=== PATIENT | male | born 1930 | race Hispanic/Latino ===

== ENCOUNTER 2017-01-10 12:22 | Inpatient (IN) | payer MEDICARE ==
--- NOTE | 2017-01-10 13:24 | C.PDOC ---
History Of Present Illness 86 y/o male presents to ED sent by Dr. Strickland for admission under hospitalist for Anemia. As per Dr. Strickland patient had a Hemoglobin of 5.2 and has been evaluated for bleeding with negative stool test. Physician wants patient admitted for Iron studies and x4 units of prbcs. In ED patient complaints of fatigue and denies syncope, nausea, vomiting, headache or any other complaints at this time. Time Seen by Provider: 01/10/17 13:04 Chief Complaint (Nursing): Abnormal Labs History Per: Patient History/Exam Limitations: no limitations Onset/Duration Of Symptoms: Days Current Symptoms Are (Timing): Still Present Past Medical History Reviewed: Historical Data, Nursing Documentation, Vital Signs Vital Signs: Last Vital Signs Temp 97.3 F L 01/10/17 12:42 Pulse 73 01/10/17 12:42 Resp 16 01/10/17 12:42 BP 116/65 01/10/17 12:42 Pulse Ox 98 01/10/17 13:47 - Medical History PMH: No Chronic Diseases Surgical History: No Surg Hx Family History: States: No Known Family Hx - Social History Hx Alcohol Use: No Hx Substance Use: No - Immunization History Hx Tetanus Toxoid Vaccination: No Hx Influenza Vaccination: No Hx Pneumococcal Vaccination: No Review Of Systems Except As Marked, All Systems Reviewed And Found Negative. Constitutional: Negative for: Fever, Chills Cardiovascular: Negative for: Chest Pain Respiratory: Negative for: Cough, Shortness of Breath Gastrointestinal: Negative for: Nausea, Vomiting Genitourinary: Negative for: Dysuria, Frequency, Hematuria Skin: Negative for: Rash Neurological: Negative for: Weakness, Numbness Physical Exam - Physical Exam Appears: Non-toxic, No Acute Distress Skin: Warm, Dry, Pale Head: Atraumatic, Normacephalic Eye(s): bilateral: Normal Inspection, PERRL, EOMI Oral Mucosa: Moist Throat: Normal, No Erythema, No Exudate Neck: Normal ROM, Supple Cardiovascular: Rhythm Regular Respiratory: Normal Breath Sounds, No Rales, No Rhonchi, No Wheezing Extremity: Normal ROM, Capillary Refill (<2 seconds) Neurological/Psych: Oriented x3, Normal Motor, Normal Sensation ED Course And Treatment - Laboratory Results Result Diagrams: 01/10/17 13:32 01/10/17 13:21 O2 Sat by Pulse Oximetry: 98 (RA) Pulse Ox Interpretation: Normal Medical Decision Making Medical Decision Making: EKG shows NSR at 92bpm with RBBB. Labs significant for anemia and low platelets. Transfusion ordered per atomic spectroscopist. Spoke to Dr. Malachi Caceres who will admit patient/ Disposition - Disposition Disposition: HOSPITALIZED Disposition Time: 14:13 Condition: FAIR - Clinical Impression Clinical Impression: Anemia, Thrombocytopenia - Scribe Statement The provider has reviewed the documentation as recorded by the Inocencio Collins All medical record entries made by the Inocencio were at my direction and personally dictated by me. I have reviewed the chart and agree that the record accurately reflects my personal performance of the history, physical exam, medical decision making, and the department course for this patient. I have also personally directed, reviewed, and agree with the discharge instructions and disposition.
[2017-01-10 13:37] LABS: CHLORIDE 102 mmol/L (98-107); POTASSIUM 3.6 mmol/L (3.6-5.2); SODIUM 136 mmol/L (132-148)
[2017-01-10 13:39] LABS: GFR AFRICAN-AMERICAN 54; IRON 66 ug/dL (49-181)
[2017-01-10 13:40] LABS: ALB/GLOB RATIO 0.8 (1.0-2.1); ALKALINE PHOSPHATASE 51 U/L (38-126); ALT/SGPT 30 U/L (21-72); AST/SGOT 17 U/L (17-59); BILIRUBIN,TOTAL 1.2 mg/dL (0.2-1.3); BLOOD UREA NITROGEN 38 mg/dL (9-20); CALCIUM 8.1 mg/dl (8.6-10.4); CARBON DIOXIDE 21 mmol/L (22-30); GLUCOSE,RANDOM 104 mg/dL (75-110); TOTAL PROTEIN 8.2 g/dL (6.3-8.3)
[2017-01-10 13:41] LABS: INR 1.4
[2017-01-10 13:41] LABS: MEAN PLATELET VOLUME 11.2 fL (7.2-11.7)
[2017-01-10 13:48] LABS: MEAN CELL VOLUME 71.7 fL (80.0-94.0); MEAN CORPUSCULAR HEMOGLOBIN 21.6 pg (27.0-31.0); MEAN CORPUSCULAR HGB CONC 30.1 g/dL (33.0-37.0); RED CELL DISTRIBUTION WIDTH 42.7 % (11.5-14.5); WHITE BLOOD COUNT 7.5 K/uL (4.8-10.8)
[2017-01-10 13:52] LABS: PLATELET COUNT 27 K/uL (130-400)
[2017-01-10 14:25] LABS: BILIRUBIN,DIRECT 0.8 mg/dL (0.0-0.4)
[2017-01-10 14:27] LABS: BASO % 0.4 % (0.0-2.0); EOS # 0.1 K/uL (0.0-0.7); EOS % 0.7 % (0.0-4.0); LYMPH # 2.7 K/uL (1.0-4.3); MONO # 3.4 K/uL (0.0-0.8); MONO % 46.2 % (0.0-10.0); NRBC % 1.6 % (0.0-2.0)
[2017-01-10 14:29] LABS: NEUTROPHIL 16 % (50-75); NUCLEATED RED BLOOD CELL 1 % (0-0); TOTAL CELLS COUNTED 100
[2017-01-10 14:31] LABS: ACANTHOCYTES SLIGHT
[2017-01-10 14:32] LABS: HOMOCYSTEINE 34.7 umol/L (6.6-14.8)
[2017-01-10 14:32] LABS: LARGE PLATELETS PRESENT
[2017-01-10 14:44] LABS: FOLATE 15.8 ng/mL
--- NOTE | 2017-01-10 16:20 | RAD ---
HISTORY: anemia COMPARISON: No prior. FINDINGS: LUNGS: No acute infiltrate bilaterally. PLEURA: Trace right pleural effusion not excluded. No significant right pleural effusion identified, no pneumothorax apparent. CARDIOVASCULAR: Borderline cardiomegaly. No pulmonary vascular derangement identified. OSSEOUS STRUCTURES: No significant abnormalities. VISUALIZED UPPER ABDOMEN: Normal. OTHER FINDINGS: None. IMPRESSION: Borderline cardiomegaly. No acute infiltrate bilaterally. Trace of pleural effusion not excluded.
--- NOTE | 2017-01-10 16:25 | CP.PCM.HP ---
History of Present Illness - History of Present Illness History of Present Illness: Medicine H/P for Dr. Caceres CC: Sent by PMD for low Hgb HPI: Patient come to the ED after being set here from Dr. Daugherty's office. He has been feeling tired for two days associated with being "unable to catch his breath". He went to his PMDs office Dr. Aranda that sent him to a cardiologists office where he received an EKG and Echo. He was then sent to Dr. Daugherty's office where he was found to have a very low Hgb and was instructed to be sent to the ED and receive blood. When i saw the patient he was already getting his first unit of blood. Denies any sick contacts or recent travel ROS: * Const: denied Fever, chills or WL * HEENT: complained of minor MCCABE, denies any changes in hearing vision, dizziness * Heart: denied any chest pain, complained of some SOB, denied any palpitations * Lungs: complained of some SOB, Denied any cough * GI: has had a colonoscopy every 10 years since the age of 50, Denies abdominal pain, nausea, vomiting, diarrhea, constipation, hematemesis, hematochezia, melena or BRNPR * : Denies dysuria, frequency or hematuria * Ext: denies any leg pain or swelling * Skin: Denies any rashes * Heme: denies any easy brusing * Onc: Denies any history of cancer PMH: Anxiety PSH: none FH: noncontributory 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, 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; 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, 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, 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 Meds: Ativan 0.5mg PO TID PRN for anxiety Allergies: None FULL CODE PMD: Rosi Present on Admission - Present on Admission Any Indicators Present on Admission: No Review of Systems - Review of Systems All systems: reviewed and no additional remarkable complaints except (per hpi) Past Patient History - Past Social History Smoking Status: Never Smoked - PSYCHIATRIC Hx Substance Use: No Meds Allergies/Adverse Reactions: Allergies Allergy/AdvReac Type Severity Reaction Status Date / Time No Known Allergies Allergy Verified 01/10/17 12:45 Physical Exam - Constitutional Appears: Well, Non-toxic, No Acute Distress - Head Exam Head Exam: ATRAUMATIC, NORMAL INSPECTION, NORMOCEPHALIC - Eye Exam Eye Exam: EOMI Pupil Exam: NORMAL ACCOMODATION - ENT Exam ENT Exam: Mucous Membranes Moist - Respiratory Exam Respiratory Exam: Clear to Auscultation Bilateral, NORMAL BREATHING PATTERN - Cardiovascular Exam Cardiovascular Exam: REGULAR RHYTHM - GI/Abdominal Exam GI & Abdominal Exam: Normal Bowel Sounds, Soft. absent: Distended, Tenderness - Rectal Exam Additional comments: FOBT done in ER was negative - Extremities Exam Extremities exam: Negative for: joint swelling, tenderness - Back Exam Back exam: absent: CVA tenderness (L), CVA tenderness (R) - Neurological Exam Neurological exam: Alert, CN II-XII Intact, Oriented x3 - Psychiatric Exam Psychiatric exam: Normal Affect, Normal Mood - Skin Skin Exam: Dry, Intact, Normal Color, Warm Results - Vital Signs Recent Vital Signs: Last Vital Signs Temp 98 F 01/10/17 15:31 Pulse 86 01/10/17 15:31 Resp 16 01/10/17 15:31 BP 128/57 L 01/10/17 15:31 Pulse Ox 98 01/10/17 15:31 - Labs Result Diagrams: 01/10/17 13:32 01/10/17 13:21 Labs: Laboratory Results - last 24 hr 01/10/17 01/10/17 01/10/17 13:21 13:21 13:21 WBC RBC Hgb Hct MCV MCH MCHC RDW Plt Count MPV Neut % (Auto) Lymph % (Auto) [place] % (Auto) Eos % (Auto) Baso % (Auto) Neut # Lymph # [place] # Eos # Baso # Neutrophils % (Manual) Lymphocytes % (Manual) Monocytes % (Manual) Nucleated RBC % Platelet Estimate Large Platelets Hypochromasia (manual) Poikilocytosis (manual Basophilic Stippling Anisocytosis (manual) Microcytosis (manual) Macrocytosis (manual) Target Cells Tear Drop Cells Ovalocytes [place] Cells Acanthocytes (Spur) Retic Count PT 16.4 H INR 1.4 APTT 28 Sodium 136 Potassium 3.6 Chloride 102 Carbon Dioxide 21 L Anion Gap 17 BUN 38 H Creatinine 1.5 Est GFR ( Amer) 54 Est GFR (Non-Af Amer) 44 Random Glucose 104 Calcium 8.1 L Iron TIBC % Saturation Ferritin 624.0 Total Bilirubin 1.2 Direct Bilirubin AST 17 ALT 30 Alkaline Phosphatase 51 Lactate Dehydrogenase Total Protein 8.2 Albumin 3.6 Globulin 4.6 H Albumin/Globulin Ratio 0.8 L Vitamin B12 < 159 L Folate 15.8 Homocysteine Influenza Typ A,B (EIA) Blood Type O POSITIVE Antibody Screen Negative 01/10/17 01/10/17 01/10/17 13:21 13:32 14:12 WBC 7.5 RBC 2.37 L Hgb 5.1 L* Hct 17.0 L MCV 71.7 L MCH 21.6 L MCHC 30.1 L RDW 42.7 H Plt Count 27 L* MPV 11.2 Neut % (Auto) 15.7 L Lymph % (Auto) 37.0 [place] % (Auto) 46.2 H Eos % (Auto) 0.7 Baso % (Auto) 0.4 Neut # 1.2 L Lymph # 2.7 [place] # 3.4 H Eos # 0.1 Baso # 0.0 Neutrophils % (Manual) 16 L Lymphocytes % (Manual) 37 Monocytes % (Manual) 47 H Nucleated RBC % 1 H Platelet Estimate Markedly decreased L Large Platelets Present Hypochromasia (manual) Marked Poikilocytosis (manual Moderate Basophilic Stippling Slight Anisocytosis (manual) Moderate Microcytosis (manual) Moderate Macrocytosis (manual) Moderate Target Cells Moderate Tear Drop Cells Slight Ovalocytes Slight [place] Cells Slight Acanthocytes (Spur) Slight Retic Count PT INR APTT Sodium Potassium Chloride Carbon Dioxide Anion Gap BUN Creatinine Est GFR ( Amer) Est GFR (Non-Af Amer) Random Glucose Calcium Iron 66 TIBC 253 % Saturation 26 Ferritin Total Bilirubin Direct Bilirubin 0.8 H AST ALT Alkaline Phosphatase Lactate Dehydrogenase 1194 H Total Protein Albumin Globulin Albumin/Globulin Ratio Vitamin B12 Folate Homocysteine 34.7 H Influenza Typ A,B (EIA) Blood Type Antibody Screen 01/10/17 01/10/17 01/10/17 14:12 14:28 15:09 WBC RBC Hgb Hct MCV MCH MCHC RDW Plt Count MPV Neut % (Auto) Lymph % (Auto) [place] % (Auto) Eos % (Auto) Baso % (Auto) Neut # Lymph # [place] # Eos # Baso # Neutrophils % (Manual) Lymphocytes % (Manual) Monocytes % (Manual) Nucleated RBC % Platelet Estimate Large Platelets Hypochromasia (manual) Poikilocytosis (manual Basophilic Stippling Anisocytosis (manual) Microcytosis (manual) Macrocytosis (manual) Target Cells Tear Drop Cells Ovalocytes [place] Cells Acanthocytes (Spur) Retic Count 2.1 H PT INR APTT Sodium Potassium Chloride Carbon Dioxide Anion Gap BUN Creatinine Est GFR ( Amer) Est GFR (Non-Af Amer) Random Glucose Calcium Iron TIBC % Saturation 17 L Ferritin Total Bilirubin Direct Bilirubin AST ALT Alkaline Phosphatase Lactate Dehydrogenase Total Protein Albumin Globulin Albumin/Globulin Ratio Vitamin B12 Folate Homocysteine Influenza Typ A,B (EIA) Negative for flu a/b Blood Type Antibody Screen Assessment & Plan (1) Anemia Assessment and Plan: * Heme (Dat) * Being transfused 2 units today and 2 units tomorrow * Haptoglobin * IF * methylmalonic acid * Homocysteine 34.7 * Parietal cell Ab * FOBT - negative * Iron 66 * TIBC 253 * % saturation 26 --> 17 * Ferritin 624 * Direct bili 0.8 * LDH 1194 * Folate 15.8 * Flu - negative * Peripheral Smear Status: Acute Priority: High (2) Prophylactic measure Assessment and Plan: * SCD * Ambulate * No GI ppx due to Thrombocytopenia * Zofran * Colace * Tylenol Status: Acute Priority: Medium
[2017-01-10] MEDS ORDERED: Pneumococcal 23-Valent Vaccine IM ONE (20:22)
[2017-01-10] MEDS ORDERED: Influenza Vaccine 60 mcg/0.5 mL SYR (4YR UP) IM ONE (20:23)
[2017-01-11] MEDS ORDERED: Vitamins A & D Oint UD Foilpak TOP ONE (00:50)
[2017-01-11 07:48] LABS: EOS # 0.1 K/uL (0.0-0.7); EOS % 1.2 % (0.0-4.0); HEMATOCRIT 18.9 % (35.0-51.0); LYMPH # 1.1 K/uL (1.0-4.3); LYMPH % 22.6 % (20.0-40.0); MEAN CELL VOLUME 73.4 fL (80.0-94.0); MEAN CORPUSCULAR HEMOGLOBIN 23.7 pg (27.0-31.0); MEAN CORPUSCULAR HGB CONC 32.3 g/dL (33.0-37.0); MEAN PLATELET VOLUME 9.1 fL (7.2-11.7); MONO # 2.4 K/uL (0.0-0.8); MONO % 51.1 % (0.0-10.0); NRBC % 1.4 % (0.0-2.0); RED CELL DISTRIBUTION WIDTH 35.2 % (11.5-14.5); WHITE BLOOD COUNT 4.8 K/uL (4.8-10.8)
[2017-01-11 07:51] LABS: PLATELET COUNT 17 K/uL (130-400)
[2017-01-11 08:18] LABS: BILIRUBIN,TOTAL 2.2 mg/dL (0.2-1.3); TOTAL PROTEIN 6.3 g/dL (6.3-8.3)
[2017-01-11 08:19] LABS: CALCIUM 7.7 mg/dl (8.6-10.4)
[2017-01-11 09:16] LABS: BASOPHIL 1 % (0-2); EOSINOPHIL 2 % (0-4); MYELOCYTE 1 % (0-0); NEUTROPHIL 22 % (50-75); TOTAL CELLS COUNTED 100
[2017-01-11 09:17] LABS: ACANTHOCYTES SLIGHT
[2017-01-11] MEDS ORDERED: Ferric Sodium Gluconat Complex 62.5 mg/5 ml Vial IVPB SCH (10:00)
[2017-01-11 14:38] LABS: PARIETAL CELL AB SCREEN Negative (Negative)
--- NOTE | 2017-01-11 14:50 | CP.PCM.PN ---
<Demian Gutierrez - Last Filed: 01/11/17 14:46> Subjective - Date & Time of Evaluation Date of Evaluation: 01/11/17 Time of Evaluation: 10:30 - Subjective Subjective: PGY-[address] Caceres. No acute overnight events noted. Patient was seen and examined at bedside this AM with visitors present. Patient denied having any symptoms or complaints. He was hesitant to receive 2 units of pRBCs (he only wants 1 unit) however after conveying the benefits he said he is amenable. He denied chest pain, shortness of breath, abdominal pain, nausea, vomiting, diarrhea, fever, chills. Objective - Vital Signs/Intake and Output Vital Signs (last 24 hours): Temp Pulse Resp BP Pulse Ox 97.7 F 88 18 114/52 L 94 L 01/11/17 14:32 01/11/17 14:32 01/11/17 14:32 01/11/17 14:32 01/11/17 11:07 Intake and Output: 01/11/17 01/11/17 06:59 18:59 Intake Total 1122 280 Output Total 200 Balance 922 280 - Medications Medications: Current Medications Acetaminophen (Tylenol 325mg Tab) 650 mg PO Q6 PRN PRN Reason: Pain, moderate (4-7) Docusate Sodium (Colace) 100 mg PO DAILY [facility] Last Admin: 01/11/17 09:33 Dose: 100 mg Ferric Sodium Gluconate Complex (Ferrlecit) 125 mg IVPB DAILY [facility] Stop: 01/19/17 10:01 Last Admin: 01/11/17 09:51 Dose: 125 mg Ondansetron HCl (Zofran Inj) 4 mg IVP Q6 PRN PRN Reason: Nausea/Vomiting - Labs Labs: 01/11/17 06:59 01/11/17 06:59 PT 16.4 SECONDS (9.7-12.2) H 01/10/17 13:21 INR 1.4 01/10/17 13:21 APTT 28 SECONDS (21-34) 01/10/17 13:21 - Additional Findings Additional findings: - Constitutional Appears: Well, Non-toxic, No Acute Distress - Head Exam Head Exam: ATRAUMATIC, NORMAL INSPECTION, NORMOCEPHALIC - Eye Exam Eye Exam: EOMI Pupil Exam: NORMAL ACCOMODATION - ENT Exam ENT Exam: Mucous Membranes Moist - Respiratory Exam Respiratory Exam: Clear to Auscultation Bilateral, NORMAL BREATHING PATTERN - Cardiovascular Exam Cardiovascular Exam: REGULAR RHYTHM - GI/Abdominal Exam GI & Abdominal Exam: Normal Bowel Sounds, Soft. absent: Distended, Tenderness - Rectal Exam Additional comments: FOBT done in ER was negative - Extremities Exam Extremities exam: Negative for: joint swelling, tenderness - Back Exam Back exam: absent: CVA tenderness (L), CVA tenderness (R) - Neurological Exam Neurological exam: Alert, CN II-XII Intact, Oriented x3 - Psychiatric Exam Psychiatric exam: Normal Affect, Normal Mood - Skin Skin Exam: Dry, Intact, Normal Color, Warm Assessment and Plan - Assessment and Plan (Free Text) Assessment: (1) Anemia Assessment and Plan: * Given Lab values (listed below) anemia is likely 2/2 to Pernicious Anemia * Heme/Onc Thania) * s/p transfusion 2 units pRBC 01/10 and will receive 2 units pRBC today 01/11 * Vitamin B12 < 159 (low) * Ferritin 624 (high) * LDH 1194 (high) * Direct bili 0.8 (high) * Homocysteine 34.7 (high) * IF * methylmalonic acid * Parietal cell Ab * Peripheral Smear * Iron 66 (normal) * TIBC 253 (normal) * % saturation 26 (normal) --> 17 (low) * Folate 15.8 (normal) * Haptoglobin 109 (normal) * Flu - negative * FOBT - negative Status: Acute Priority: High (2) Thrombocytopenia Assessment and Plan: * Platelet count 17. No bleeding. * Likely 2/2 to low B12 resulting in pancytopenia (3) Prophylactic measure Assessment and Plan: * SCD * Ambulate * No GI ppx due to Thrombocytopenia * Zofran * Colace * Tylenol Status: Acute Priority: Medium Disposition: Discharge to home, however patient has said he will AMA 01/11/17 after receiving his 2nd unit of pRBC. He has an appointment scheduled with heme/ onc Dr Daugherty on January 17 2017. <Tato Caceres - Last Filed: 01/11/17 19:18> Objective - Vital Signs/Intake and Output Vital Signs (last 24 hours): Temp Pulse Resp BP Pulse Ox 98.2 F 60 18 106/51 L 98 01/11/17 15:17 01/11/17 15:17 01/11/17 15:17 01/11/17 15:17 01/11/17 15:00 Intake and Output: 01/11/17 01/12/17 18:59 06:59 Intake Total 1320 Balance 1320 - Medications Medications: Current Medications Acetaminophen (Tylenol 325mg Tab) 650 mg PO Q6 PRN PRN Reason: Pain, moderate (4-7) Last Admin: 01/11/17 14:00 Dose: 650 mg Docusate Sodium (Colace) 100 mg PO DAILY [facility] Last Admin: 01/11/17 09:33 Dose: 100 mg Ferric Sodium Gluconate Complex (Ferrlecit) 125 mg IVPB DAILY [facility] Stop: 01/19/17 10:01 Last Admin: 01/11/17 09:51 Dose: 125 mg Ondansetron HCl (Zofran Inj) 4 mg IVP Q6 PRN PRN Reason: Nausea/Vomiting - Labs Labs: 01/11/17 06:59 01/11/17 06:59 PT 16.4 SECONDS (9.7-12.2) H 01/10/17 13:21 INR 1.4 01/10/17 13:21 APTT 28 SECONDS (21-34) 01/10/17 13:21 Attending/Attestation - Attestation I have personally seen and examined this patient.: Yes I have fully participated in the care of the patient.: Yes I have reviewed all pertinent clinical information, including history, physical exam and plan: Yes Notes (Text): 01/11/17 19:11 Patient was seen and examined at 8:45 AM 01/11/17 651 A Exam, assessment and plan were thoroughly gone over with the resident. At the time of my exam, patient wanted to sign out AMA as the blood was not being transfused quickly enough for him. I explained to him that there was a process that was followed and that the nurse on his case as well as myself and the resident working with me were all working to get him out of the hospital safely. I explained to him the dangers of very low anemia and the risk for ligtheadedness/dizziness leading to fall and injury as well as strain to heart leading to high heart rate leading to arrhythmias and cardiac arrest. He agreed to stay for 2 more blood transfusions. Tato Caceres D.O.
[2017-01-11 15:24] VITALS: BP 106/51; RESP 18; TEMP 98.2
[2017-01-11 16:17] VITALS: O2SAT 98
[2017-01-11 20:05] LABS: EOS # 0.1 K/uL (0.0-0.7); MEAN PLATELET VOLUME 11.2 fL (7.2-11.7)
[2017-01-11 20:10] LABS: BASO % 0.5 % (0.0-2.0); EOS % 1.1 % (0.0-4.0); HEMATOCRIT 23.5 % (35.0-51.0); LYMPH # 1.9 K/uL (1.0-4.3); LYMPH % 35.9 % (20.0-40.0); MEAN CELL VOLUME 75.1 fL (80.0-94.0); MEAN CORPUSCULAR HEMOGLOBIN 25.8 pg (27.0-31.0); MEAN CORPUSCULAR HGB CONC 34.3 g/dL (33.0-37.0); MONO # 2.3 K/uL (0.0-0.8); MONO % 43.4 % (0.0-10.0); NRBC % 1.1 % (0.0-2.0); RED CELL DISTRIBUTION WIDTH 29.1 % (11.5-14.5); WHITE BLOOD COUNT 5.3 K/uL (4.8-10.8)
[2017-01-11 20:15] LABS: PLATELET COUNT 25 K/uL (130-400)
[2017-01-11 20:23] VITALS: PULSE 85
[2017-01-11 20:52] LABS: EOSINOPHIL 1 % (0-4); METAMYELOCYTE 1 % (0-0); NEUTROPHIL 14 % (50-75); TOTAL CELLS COUNTED 100
--- NOTE | 2017-01-12 06:30 | CP.PCM.DIS ---
Provider - Provider Date of Admission: 01/11/17 13:09 Attending physician: Tato Caceres MD Primary care physician: Dr Aranda Consults: Heme/Onc - Dr Daugherty Time Spent in preparation of Discharge (in minutes): 45 Diagnosis - Discharge Diagnosis (1) Pernicious anemia Status: Acute Priority: High Hospital Course - Lab Results Lab Results: Most Recent Lab Values WBC 5.3 K/uL (4.8-10.8) 01/11/17 19:47 RBC 3.13 Mil/uL (4.40-5.90) L 01/11/17 19:47 Hgb 8.1 g/dL (12.0-18.0) L D 01/11/17 19:47 Hct 23.5 % (35.0-51.0) L 01/11/17 19:47 MCV 75.1 fL (80.0-94.0) L 01/11/17 19:47 MCH 25.8 pg (27.0-31.0) L 01/11/17 19:47 MCHC 34.3 g/dL (33.0-37.0) 01/11/17 19:47 RDW 29.1 % (11.5-14.5) H 01/11/17 19:47 Plt Count 25 K/uL (130-400) L* 01/11/17 19:47 MPV 11.2 fL (7.2-11.7) 01/11/17 19:47 Neut % (Auto) 19.1 % (50.0-75.0) L 01/11/17 19:47 Lymph % (Auto) 35.9 % (20.0-40.0) 01/11/17 19:47 [place] % (Auto) 43.4 % (0.0-10.0) H 01/11/17 19:47 Eos % (Auto) 1.1 % (0.0-4.0) 01/11/17 19:47 Baso % (Auto) 0.5 % (0.0-2.0) 01/11/17 19:47 Neut # 1.0 K/uL (1.8-7.0) L 01/11/17 19:47 Lymph # 1.9 K/uL (1.0-4.3) 01/11/17 19:47 [place] # 2.3 K/uL (0.0-0.8) H 01/11/17 19:47 Eos # 0.1 K/uL (0.0-0.7) 01/11/17 19:47 Baso # 0.0 K/uL (0.0-0.2) 01/11/17 19:47 Neutrophils % (Manual) 14 % (50-75) L 01/11/17 19:47 Band Neutrophils % 7 % (0-2) H 01/11/17 19:47 Lymphocytes % (Manual) 25 % (20-40) 01/11/17 19:47 Monocytes % (Manual) 52 % (0-10) H 01/11/17 19:47 Eosinophils % (Manual) 1 % (0-4) 01/11/17 19:47 Basophils % (Manual) 1 % (0-2) 01/11/17 06:59 Metamyelocytes % 1 % (0-0) H 01/11/17 19:47 Myelocytes % 1 % (0-0) H 01/11/17 06:59 Nucleated RBC % 1 % (0-0) H 01/10/17 13:32 Platelet Estimate Markedly decreased (NORMAL) L 01/11/17 19:47 Large Platelets Present 01/10/17 13:32 Polychromasia Slight 01/11/17 19:47 Hypochromasia (manual) Moderate 01/11/17 19:47 Poikilocytosis (manual Moderate 01/11/17 06:59 Basophilic Stippling Slight 01/10/17 13:32 Anisocytosis (manual) Marked 01/11/17 19:47 Microcytosis (manual) Slight 01/11/17 19:47 Macrocytosis (manual) Moderate 01/10/17 13:32 Target Cells Slight 01/11/17 19:47 Tear Drop Cells Slight 01/11/17 19:47 Ovalocytes Slight 01/11/17 19:47 [place] Cells Moderate 01/11/17 06:59 Acanthocytes (Spur) Slight 01/11/17 06:59 Schistocytes Slight 01/11/17 19:47 Retic Count 2.1 % (0.5-1.5) H 01/10/17 14:12 Haptoglobin 109 mg/dL (43-212) 01/10/17 14:18 PT 16.4 SECONDS (9.7-12.2) H 01/10/17 13:21 INR 1.4 01/10/17 13:21 APTT 28 SECONDS (21-34) 01/10/17 13:21 Sodium 136 mmol/L (132-148) 01/11/17 06:59 Potassium 4.0 mmol/L (3.6-5.2) 01/11/17 06:59 Chloride 105 mmol/L (98-107) 01/11/17 06:59 Carbon Dioxide 22 mmol/L (22-30) 01/11/17 06:59 Anion Gap 14 (10-20) 01/11/17 06:59 BUN 34 mg/dL (9-20) H 01/11/17 06:59 Creatinine 1.4 mg/dL (0.8-1.5) 01/11/17 06:59 Est GFR ( Amer) 58 01/11/17 06:59 Est GFR (Non-Af Amer) 48 01/11/17 06:59 Random Glucose 110 mg/dL (75-110) 01/11/17 06:59 Calcium 7.7 mg/dl (8.6-10.4) L 01/11/17 06:59 Iron 66 ug/dL (49-181) 01/10/17 13:21 TIBC 253 ug/dL (250-450) 01/10/17 13:21 % Saturation 17 (20-55) L 01/10/17 14:28 Ferritin 624.0 ng/mL 01/10/17 13:21 Total Bilirubin 2.2 mg/dL (0.2-1.3) H 01/11/17 06:59 Direct Bilirubin 0.8 mg/dL (0.0-0.4) H 01/10/17 14:12 AST 14 U/L (17-59) L 01/11/17 06:59 ALT 22 U/L (21-72) 01/11/17 06:59 Alkaline Phosphatase 42 U/L (38-126) 01/11/17 06:59 Lactate Dehydrogenase 1194 U/L (313-618) H 01/10/17 14:12 Total Protein 6.3 g/dL (6.3-8.3) 01/11/17 06:59 Albumin 3.1 g/dL (3.5-5.0) L 01/11/17 06:59 Globulin 3.2 gm/dL (2.2-3.9) 01/11/17 06:59 Albumin/Globulin Ratio 1.0 (1.0-2.1) 01/11/17 06:59 Vitamin B12 < 159 pg/mL (239-931) L 01/10/17 13:21 Folate 15.8 ng/mL 01/10/17 13:21 Homocysteine 34.7 umol/L (6.6-14.8) H 01/10/17 14:12 Anti-Parietal Cell Ab Negative (Negative) 01/10/17 14:02 Influenza Typ A,B (EIA) Negative for flu a/b (NEGATIVE) 01/10/17 15:09 Blood Type O POSITIVE 01/10/17 13:21 Antibody Screen Negative 01/10/17 13:21 - Hospital Course Hospital Course: Medicine H/P for Dr. Caceres CC: Sent by PMD for low Hgb HPI: Patient come to the ED after being set here from Dr. Daugherty's office. He has been feeling tired for two days associated with being "unable to catch his breath". He went to his PMDs office Dr. Aranda that sent him to a cardiologists office where he received an EKG and Echo. He was then sent to Dr. Daugherty's office where he was found to have a very low Hgb and was instructed to be sent to the ED and receive blood. When i saw the patient he was already getting his first unit of blood. Denies any sick contacts or recent travel ROS: * Const: denied Fever, chills or WL * HEENT: complained of minor MCCABE, denies any changes in hearing vision, dizziness * Heart: denied any chest pain, complained of some SOB, denied any palpitations * Lungs: complained of some SOB, Denied any cough * GI: has had a colonoscopy every 10 years since the age of 50, Denies abdominal pain, nausea, vomiting, diarrhea, constipation, hematemesis, hematochezia, melena or BRNPR * : Denies dysuria, frequency or hematuria * Ext: denies any leg pain or swelling * Skin: Denies any rashes * Heme: denies any easy brusing * Onc: Denies any history of cancer PMH: Anxiety PSH: none FH: noncontributory 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 His labs ( listed below) were suggestive of B12 deficiency (however he states he takes B12 daily). The etiology behind his low B12 could be pernicous anemia however the parietal cell Ab and Intrinsic Factor Ab had not come back yet. He presented with a hgb of 5.1 and after receiving 4 units pRBCs his hbg prior to him signing AMA was 8.1. He was told the risks of leaving AMA. His platelet count was also low which is likely related to his low B12 as it can result in pancytopenia. He has an appointment scheduled with heme/onc Dr Daugherty on January 17 2017. * Vitamin B12 < 159 (low) * Ferritin 624 (high) * LDH 1194 (high) * Direct bili 0.8 (high) * Homocysteine 34.7 (high) * IF * methylmalonic acid * Parietal cell Ab * Peripheral Smear * Iron 66 (normal) * TIBC 253 (normal) * % saturation 26 (normal) --> 17 (low) * Folate 15.8 (normal) * Haptoglobin 109 (normal) * Flu - negative * FOBT - negative Discharge Exam - Head Exam Head Exam: ATRAUMATIC, NORMAL INSPECTION, NORMOCEPHALIC - Additional Findings Additional findings: - Constitutional Appears: Well, Non-toxic, No Acute Distress - Head Exam Head Exam: ATRAUMATIC, NORMAL INSPECTION, NORMOCEPHALIC - Eye Exam Eye Exam: EOMI Pupil Exam: NORMAL ACCOMODATION - ENT Exam ENT Exam: Mucous Membranes Moist - Respiratory Exam Respiratory Exam: Clear to Auscultation Bilateral, NORMAL BREATHING PATTERN - Cardiovascular Exam Cardiovascular Exam: REGULAR RHYTHM - GI/Abdominal Exam GI & Abdominal Exam: Normal Bowel Sounds, Soft. absent: Distended, Tenderness - Rectal Exam Additional comments: FOBT done in ER was negative - Extremities Exam Extremities exam: Negative for: joint swelling, tenderness - Back Exam Back exam: absent: CVA tenderness (L), CVA tenderness (R) - Neurological Exam Neurological exam: Alert, CN II-XII Intact, Oriented x3 - Psychiatric Exam Psychiatric exam: Normal Affect, Normal Mood - Skin Skin Exam: Dry, Intact, Normal Color, Warm Discharge Plan - Follow Up Plan Condition: FAIR Disposition: AGAINST MEDICAL ADVICE Additional Instructions: Patient left Against Medical Advice. He has an appointment scheduled with heme/onc Dr Daugherty on January 17 2017.
--- NOTE | 2017-01-12 10:35 | CON ---
DATE OF CONSULTATION: 01/11/2017 REASON FOR CONSULTATION: Severe anemia. HISTORY OF PRESENT ILLNESS: This is an 86-year-old gentleman, absolutely healthy, but recently complaining of feeling very weak, very tired, no energy, shortness of breath on exertion, feels sleepy all the time. However, still he went to the [facility] last week and was able to function reasonably well. The patient had a blood work done, found to have hemoglobin of 5.2 g, so was sent to the hospital for packed red blood cell transfusion. I am called on consult for further evaluation and suggestion. PAST MEDICAL HISTORY: See history of present illness. MEDICATIONS: Ativan 0.25 mg p.r.n. ALLERGY: DENIES ANY DRUG ALLERGY. SOCIAL HISTORY: Denies smoking or ethanol abuse. REVIEW OF SYSTEMS: Denies any headache, dizziness or passing out. No chest pain or abdominal pain. No nausea, vomiting, melena, hemoptysis or hematemesis. No change in the bowel habit. No change in the color of the stool. Denies any dysuria or hematuria. PHYSICAL EXAMINATION GENERAL: The patient is awake, alert, oriented, quiet, pleasant, not in acute distress. VITAL SIGNS: Pulse 88, respirations 16, blood pressure 120/70, afebrile. HEENT: Head normocephalic, atraumatic. Eyes, conjunctivae pale. Sclerae white. Pupils reacting to light. Ear, nose and throat within normal limits. LUNGS: Bilaterally good air entry. Clear to auscultation and percussion. HEART: S1 and S2 regular. No gallop. No murmur. ABDOMEN: Soft, not distended, not tender. No hepatosplenomegaly. CENTRAL NERVOUS SYSTEM: No gross motor or sensory deficits. LYMPH NODE: No cervical, axillary or inguinal lymph nodes palpable. LABORATORY DATA: WBC 7500, hemoglobin 5.1, hematocrit 17, MCV 72, platelet count 27,000. BUN 38, creatinine 1.5. Serum B12 level was 111. IMPRESSION: Anemia and thrombocytopenia. Rule out pernicious anemia. PLAN: Clinical status discussed with the patient. The patient has already received 3 units of packed red blood cell. The patient will receive a total of 4 units of packed red blood cell. After that, the patient can be discharged. We will follow up repeat iron, TIBC, ferritin, B12 and folate. We will also follow up intrinsic factor antibody and parietal cell antibody. The patient also received B12 1000 mcg one injection and also received the Ferrlecit 125 mg IV. Upon discharge, the patient will follow up into the office and we will follow up all the blood work and treat the patient depending upon the blood work. Antione Daugherty MD cc: Jorge Aranda MD
--- NOTE | 2017-01-12 16:38 | CARD ---
APPROVED REPORT EKG Measurement Heart [id number] ME 150P [id number]-2 [id number] <Conclusion> Sinus rhythm with frequent premature ventricular complexes Right bundle branch block Abnormal ECG
--- NOTE | 2017-01-12 19:03 | CARD ---
APPROVED REPORT EKG Measurement Heart [id number] [place] [id number] [id number] CI500G-[id number] <Conclusion> Sinus rhythm with frequent premature ventricular complexes Possible Left atrial enlargement Right bundle branch block Abnormal ECG
== END 2017-01-11 19:30 | disposition left against medical advice (07) | DRG 812 ==
LOC: C.ER 12:22 → INTOOBSV 13:45 → C.9E 13:45 → C.6T 16:05 → OBSVTOIN 01-11 13:09
PROVIDERS: ADMIT Family Medicine; ATTEND Family Medicine
PROC: 30233N1 Transfusion of Nonautologous Red Blood Cells into Peripheral Vein, Percutaneous Approach (ICD-10-PCS; principal; 2017-01-10)
DX: D51.0 Vitamin B12 deficiency anemia due to intrinsic factor deficiency (principal); D61.818 Other pancytopenia; I45.10 Unspecified right bundle-branch block